=== PATIENT | female | born 1945 | race Caucasian/White ===

== ENCOUNTER 2022-03-12 05:11 | Observation (INO) ==
--- NOTE | 2022-02-04 11:10 | PAT Medication Instructions ---
Medication Instructions Date of Service February 04, 2022 Home Medications allopurinol 100 mg tablet 100 mg PO PM atorvastatin 40 mg tablet 40 mg PO HS biotin 1 mg tablet 1 mg PO QAM calcium carbonate 500 mg-vitamin D3 3.125 mcg (125 unit) tablet 1 tab PO BID duloxetine 60 mg capsule,delayed release sprinkle 60 mg PO HS fiber 3 cap PO QAM gabapentin 100 mg capsule 100 mg PO DIRECTED gabapentin 300 mg capsule 300 mg PO DIRECTED lisinopril 20 mg-hydrochlorothiazide 12.5 mg tablet 1 tab PO QAM meloxicam 15 mg tablet 15 mg PO DIRECTED metformin 500 mg tablet,extended release 24 hr 500 mg PO QDD multivitamin 1 tab PO QAM omega-3 fatty acids 2,500 mg PO QAM omeprazole 20 mg tablet,delayed release 20 mg PO QAM oxybutynin chloride 10 mg tablet,extended release 24 hr 20 mg PO QAM potassium gluconate 595 mg (99 mg) tablet 595 mg PO QAM ASK your surgeon for instructions meloxicam 15 mg tablet 15 mg PO DIRECTED STOP taking 2 weeks before surgery (or as soon as possible if surgery is within 2 weeks) omega-3 fatty acids 2,500 mg PO QAM DO NOT take the morning of surgery biotin 1 mg tablet 1 mg PO QAM calcium carbonate 500 mg-vitamin D3 3.125 mcg (125 unit) tablet 1 tab PO BID fiber 3 cap PO QAM lisinopril 20 mg-hydrochlorothiazide 12.5 mg tablet 1 tab PO QAM multivitamin 1 tab PO QAM oxybutynin chloride 10 mg tablet,extended release 24 hr 20 mg PO QAM potassium gluconate 595 mg (99 mg) tablet 595 mg PO QAM Take morning of surgery With a small sip of water, OTHERWISE NOTHING TO EAT OR DRINK AFTER MIDNIGHT: gabapentin omeprazole 20 mg tablet,delayed release 20 mg PO QAM Take evening before surgery allopurinol 100 mg tablet 100 mg PO PM atorvastatin 40 mg tablet 40 mg PO HS calcium carbonate 500 mg-vitamin D3 3.125 mcg (125 unit) tablet 1 tab PO BID duloxetine 60 mg capsule,delayed release sprinkle 60 mg PO HS metformin 500 mg tablet,extended release 24 hr 500 mg PO QDD Other Notes If you have any questions please call us at [phone] or [phone] or [phone] or [phone]
--- NOTE | 2022-02-06 09:38 | Anesthesiology Consultation ---
Date of Service February 06, 2022 Assessment & Plan (1) Encounter for pre-operative examination: - COVID screening: Per assessment on 02/06: No known COVID-19 positive contacts or current COVID-19 related symptoms. Travel screen negative. Surgeon arranging preop COVID testing. Awaiting results. - Check BSG AM DOS Chart Review Chart Review: Acceptable Risk for Surgery and Patient seen in Pre Admission Testing Teaching & Discussion Pre-Anesthesia Teaching/Discussion Notes: Instructed NPO after midnight before surgery,except medications with 15 cc of water. Medication instructions provided according to the PAT guidelines. History Surgery Operation Date: 03/12/22 10:00 Proposed Procedures p Left Total Knee Arthroplasty - Travis Mayorga MD Height/Weight Height: 5 ft 5 in Weight: 85.5 kg Allergies Allergy/AdvReac Type Severity Reaction Status Date / Time No Known Allergies Allergy Verified 02/03/22 15:30 Medications Home Medications Medication Instructions Recorded Confirmed Last Taken allopurinol 100 mg tablet 100 mg PO PM 02/03/22 02/03/22 Unknown atorvastatin 40 mg tablet 40 mg PO HS 02/03/22 02/03/22 Unknown biotin 1 mg tablet 1 mg PO QAM 02/03/22 02/03/22 Unknown calcium carbonate 500 mg-vitamin 1 tab PO BID 02/03/22 02/03/22 Unknown D3 3.125 mcg (125 unit) tablet duloxetine 60 mg capsule,delayed 60 mg PO HS 02/03/22 02/03/22 Unknown release sprinkle fiber 3 cap PO QAM 02/03/22 02/03/22 Unknown gabapentin 100 mg capsule 100 mg PO DIRECTED 02/03/22 02/03/22 Unknown gabapentin 300 mg capsule 300 mg PO DIRECTED 02/03/22 02/03/22 Unknown lisinopril 20 1 tab PO QAM 02/03/22 02/03/22 Unknown mg-hydrochlorothiazide 12.5 mg tablet meloxicam 15 mg tablet 15 mg PO DIRECTED 02/03/22 02/03/22 Unknown metformin 500 mg tablet,extended 500 mg PO QDD 02/03/22 02/03/22 Unknown release 24 hr multivitamin 1 tab PO QAM 02/03/22 02/03/22 Unknown omega-3 fatty acids 2,500 mg PO QAM 02/03/22 02/03/22 Unknown omeprazole 20 mg tablet,delayed 20 mg PO QAM 02/03/22 02/03/22 Unknown release oxybutynin chloride 10 mg 20 mg PO QAM 02/03/22 02/03/22 Unknown tablet,extended release 24 hr potassium gluconate 595 mg (99 mg) 595 mg PO QAM 02/03/22 02/03/22 Unknown tablet Past Medical History Medical History Diabetic polyneuropathy Dyslipidemia Fatty liver disease, nonalcoholic GERD (gastroesophageal reflux disease) History of COVID-2020 Hypertension Neuropathy Feet Osteoarthritis Sleep apnea CPAP (compliant) Spinal stenosis Type 2 diabetes mellitus NIDDM Urge incontinence Exercise / Class Metabolic Activity II 4-5 Yardwork/Stairs/Walk up hill (one FS (no CP, no SOB)) Past Family History Family History Mother Diabetes Father Diabetes Past Surgical History Surgical History History of breast biopsy BENIGN History of cataract surgery R/L History of colonoscopy History of repair of rotator cuff RIGHT History of tooth extraction Social History Smoking Status: Never smoker Do You Dip or Chew Tobacco: No Hx Alcohol Use: Yes Alcohol type: wine alcohol intake frequency: a few times a week Hx Substance Use: No substance use type: does not use Review of Systems Previous URI symptoms- Patient was seen by PCP 01/29/22 with complaints of productive cough, rhinorrhea, sore throat x 9 days- rx'd Augmentin- negative Covid testing. Symptoms now resolved since 01/31 and patient feeling well. Patient denies chest pain, shortness of breath, dyspnea on exertion, fever, chills, wheezing, palpitations. Physical Exam Vital Signs VITALS BP 138/83 P 83 TEMP 98.5 SP02 94%RA RESP 18 PHYSICAL Mildly decreased cervical extension range of motion. Full TMJ range of motion. TMD 3 finger breaths Mallampati Score 3 Dentition: missing molars, Lungs: clear throughout to auscultation Cardiac: regular rate and rhythm, no murmurs noted Spine: normal Carotid arteries: negative bruit Extremities: no edema Lab Results Anesthesia Preop Results Results Anesthesia Widget: WBC 7.28 K/uL (4.8-10.8) 02/06/22 Hgb 13.4 g/dL (12.0-16.0) 02/06/22 Hct 40.3 % (37-47) 02/06/22 Plt 296 K/uL (130-400) 02/06/22 Na 136 mmol/L (136-145) 02/06/22 K 4.3 mmol/L (3.5-5.1) 02/06/22 Cl 99 mmol/L (98-107) 02/06/22 CO2 29 mmol/L (21-32) 02/06/22 BUN 16 mg/dl (6-23) 02/06/22 Creat 0.69 mg/dl (0.6-1.2) 02/06/22 Glucose Level 168 mg/dl (70-99(Fasting)) H 02/06/22 PT 10.7 Seconds (9.0-12.0) 02/06/22 PTT 28.3 Seconds (21.0-31.0) 02/06/22 INR 1.0 (0.9-1.1) 02/06/22 HA1c 7.5 % (4.5-5.6) H 02/06/22 Urine Color Dark Yellow 02/06/22 Urine Appearance Clear (Clear) 02/06/22 Urine pH 7.0 (4.5-7.5) 02/06/22 Urine Specific Chromo 1.018 (1.000-1.030) 02/06/22 Urine Protein Negative (Negative) 02/06/22 Urine Glucose (UA) Trace (Negative) H 02/06/22 Urine Ketones Trace (Negative) H 02/06/22 Urine Blood Negative (Negative) 02/06/22 Urine Nitrite Negative (Negative) 02/06/22 Urine Bilirubin Negative (Negative) 02/06/22 Urine Urobilinogen Negative (Negative) 02/06/22 Urine Leukocyte Esterase Negative (Negative) 02/06/22 Blood Type O Positive 02/06/22 Antibody Screen NEGATIVE 02/06/22 Testing Laboratory Results [place] at surgeon's office made aware of elevated hgba1c* Electrocardiogram Date: 02/06/22 NSR at 79bpm. LAD. Inferior infarct, age undetermined. Inferior infarct noted on 06/20/13 ECG (scanned into [employer])- Echo as done 07/11/13 for further evaluation and unremarkable. Chest X-Ray Date: 02/06/22 FINDINGS: Frontal and lateral radiographs of the chest demonstrate the cardiomediastinal silhouette to be within normal limits. The lungs are clear of alveolar opacities. There is no evidence for effusion bilaterally. There is no evidence for vascular congestion. There is no acute osseous pathology. IMPRESSION: No acute cardiopulmonary disease. Echocardiogram Date: 07/11/13 LVEF 65%. No regional motion abnormality. Trace MR. Mild AV sclerosis. Grade 1 diastolic dysfunction.
--- NOTE | 2022-03-11 07:23 | History & Physical Report ---
Date of Service March 11, 2022 Assessment & Plan (1) Primary osteoarthritis of left knee: Plan: Treatment options discussed with the patient. She has failed conservative measures and would like to proceed with surgical invention. Risks, benefits and alternatives to surgery including but not limited to infection, DVT, pain, stiffness, need for revision surgery, damage to blood vessels, damage to nerves, PE, , were discussed with the patient and they wish to proceed. Plan on left total knee arthroplasty scheduled for March 12 at [facility] with Dr. Mayorga. Plan on aspirin twice daily for 1 month postop for DVT prophylaxis. We will plan on outpatient PT. All questions answered. Patient will follow-up postop. History of Present Illness Chief Complaint: Left knee pain Primary Care Provider: Kari Church MD 76-year-old female past medical history significant for diabetes, hypertension, ROXANE, high cholesterol who presents with ongoing left knee pain. Pain is interfering with her daily activities. She has failed conservative measures and would like to proceed with surgical invention. Patient denies headaches, sweats, fevers, chills, double vision, blurred vision, cough, sore throat, dysphagia, chest pain, sob, wheezing, n/v/d/c, numbness, tingling, fatigue, urinary symptoms, mood disorders. ROS positive for left knee pain and stiffness. Allergies Allergy/AdvReac Type Severity Reaction Status Date / Time No Known Allergies Allergy Verified 02/03/22 15:30 Home Medications Medication Instructions Recorded Confirmed Type allopurinol 100 mg tablet 100 mg PO PM 02/03/22 02/03/22 History atorvastatin 40 mg tablet 40 mg PO HS 02/03/22 02/03/22 History biotin 1 mg tablet 1 mg PO QAM 02/03/22 02/03/22 History calcium carbonate 500 mg-vitamin 1 tab PO BID 02/03/22 02/03/22 History D3 3.125 mcg (125 unit) tablet duloxetine 60 mg capsule,delayed 60 mg PO HS 02/03/22 02/03/22 History release sprinkle fiber 3 cap PO QAM 02/03/22 02/03/22 History gabapentin 100 mg capsule 100 mg PO DIRECTED 02/03/22 02/03/22 History gabapentin 300 mg capsule 300 mg PO DIRECTED 02/03/22 02/03/22 History lisinopril 20 1 tab PO QAM 02/03/22 02/03/22 History mg-hydrochlorothiazide 12.5 mg tablet meloxicam 15 mg tablet 15 mg PO DIRECTED 02/03/22 02/03/22 History metformin 500 mg tablet,extended 500 mg PO QDD 02/03/22 02/03/22 History release 24 hr multivitamin 1 tab PO QAM 02/03/22 02/03/22 History omega-3 fatty acids 2,500 mg PO QAM 02/03/22 02/03/22 History omeprazole 20 mg tablet,delayed 20 mg PO QAM 02/03/22 02/03/22 History release oxybutynin chloride 10 mg 20 mg PO QAM 02/03/22 02/03/22 History tablet,extended release 24 hr potassium gluconate 595 mg (99 mg) 595 mg PO QAM 02/03/22 02/03/22 History tablet Past Med/Surg History Medical History Diabetic polyneuropathy Dyslipidemia Fatty liver disease, nonalcoholic GERD (gastroesophageal reflux disease) History of COVID-2020 Hypertension Neuropathy Feet Osteoarthritis Sleep apnea CPAP (compliant) Spinal stenosis Type 2 diabetes mellitus NIDDM Urge incontinence Surgical History History of breast biopsy BENIGN History of cataract surgery R/L History of colonoscopy History of repair of rotator cuff RIGHT History of tooth extraction Family History Mother Diabetes Father Diabetes Social History Smoking Status: Never smoker Second Hand Exposure: No; Hx Alcohol Use: Yes Alcohol type: wine Hx Substance Use: No Preferred Language: Nepalese Communication Ability: Effective 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 Beliefs That Will Affect Care: None Current Living Situation: Alone Feels Safe at Home: Yes Assistive Devices: CPAP and Glasses Review of Systems All systems reviewed & are unremarkable except as noted in HPI & below Physical Exam Constitutional: well developed and well nourished; no acute distress Eyes: PERRL, conjunctivae normal, anicteric sclerae ENMT: external ear and nose normal, oropharynx normal Neck: trachea midline, no thyromegaly Respiratory: normal respiratory effort, lungs clear to auscultation Cardiovascular: RRR, no murmur, no edema Musculoskeletal: Left knee: Varus alignment, tenderness medial joint line. Stress test. Range of motion 0 to 130 degrees. Skin: no rashes, warm and dry Neurologic: patellar DTR's 2+ bilat, sensation intact Psychiatric: A+Ox3, euthymic affect Results & Data ([facility]) Diagnostic Findings Left knee: End-stage osteoarthritis left knee with [id number] medial compartment. Significant degenerative changes patellofemoral compartment. She has some bone loss medially. There is subluxation noted.
[2022-03-12] MEDS ORDERED: CeleBREX 200 MG CAP PO SCH (06:00)
[2022-03-12] MEDS ORDERED: TRANEXAMIC ACID 1,000 MG **IV Intra-op IV SCH (06:00)
[2022-03-12] MEDS ORDERED: ROPIVACAINE 0.5% HCL/PF 150 MG, BUPIVACAINE 0.75% MPF 20 ML, EPINEPHrine 30MG/30ML (OR ... INFIL SCH (06:00)
[2022-03-12] MEDS ORDERED: GABAPENTIN 300 MG CAP PO SCH ×2 (06:00→12:00)
[2022-03-12] MEDS ORDERED: TRANEXAMIC ACID 1,000 MG **IV Pre-op IV SCH (06:00)
[2022-03-12] MEDS ORDERED: ceFAZolin 2000MG 2,000 MG/15 ML SYR IV SCH (06:00)
[2022-03-12] MEDS ORDERED: ACETAMINOPHEN 500 MG TAB PO SCH (06:00)
[2022-03-12] MEDS ORDERED: LR 500ML BOLUS, THEN 15ML/HR IV SCH (06:00)
[2022-03-12] MEDS ORDERED: METOCLOPRAMIDE HCL 10 MG TABLET PO SCH (06:00)
[2022-03-12] MEDS ORDERED: FAMOTIDINE 20 MG TAB PO SCH (06:00)
[2022-03-12] MEDS ORDERED: ROPIVACAINE 0.5% 5 MG/ML 30 ML VIAL ONE (06:20)
[2022-03-12] MEDS ORDERED: BUPIVACAINE 0.5 % 5 MG/1 ML PF 10ML VIAL ONE (06:20)
[2022-03-12] MEDS ORDERED: LIDOCAINE 2% 2 ML VIAL/AMP(20MG/ML) INFIL ONE (06:25)
[2022-03-12] MEDS ORDERED: PROPOFOL IV EMULSION 10 MG/ML 20 ML VIAL IV ONE (06:25)
[2022-03-12] MEDS ORDERED: MIDAZOLAM HCL 1 MG/ML 2ML VIAL ONE (06:26)
[2022-03-12] MEDS ORDERED: fentaNYL citrate 100 MCG/2 ML VIAL ONE (06:26)
[2022-03-12] MEDS ORDERED: HYDROmorphone INJ 1 MG/ML SYRINGE IV PRN (06:50)
[2022-03-12] MEDS ORDERED: KETOROLAC 30 MG/ML VIAL IV PRN (06:50)
[2022-03-12] MEDS ORDERED: ONDANSETRON INJ 2 MG/ML 2 ML VIAL IV PRN ×2 (06:50→10:51)
[2022-03-12] MEDS ORDERED: ePHEDrine sulfate 50 MG/ML AMP IV PRN (06:50)
[2022-03-12] MEDS ORDERED: ATROPINE SULFATE 0.1 MG/ML 10ML SYR IV PRN (06:50)
[2022-03-12] MEDS ORDERED: ORTHO JOINT ANESTHETIC ONE (07:01)
--- NOTE | 2022-03-12 07:14 | History & Physical Bridge Note ---
Date of Service March 12, 2022 History & Physical Bridge Note I have examined the patient, reviewed the History & Physical and in the interval since the performance of the History & Physical I have noted the following changes of clinical significance: no changes noted
--- NOTE | 2022-03-12 09:19 | Operative Report ---
Post Operative Report Pre & Post Diagnosis Operation Date: 03/12/22 07:00 Pre-Op Diagnosis: Left Knee Osteoarthritis Post-Op Diagnosis: Left Knee Osteoarthritis I identified the patient and participated in the time-out.: Yes Procedure Operation Date: 03/12/22 07:00 Actual Procedures p Left Total Knee Arthroplasty(Left), lateral release, application superficial wound VAC Travis Mayorga MD Surgeon Travis Mayorga MD Bat Boy/Girl Adriel BAI Estimated Blood Loss 5 Findings Consistent with Post-Op Diagnosis Specimens Bone cuts Drains 2 Hemovac Anesthesia Type MAC Spinal Regional Complications none Disposition Disposition: Recovery Room Indications 76-year female with chronic progressive osteoarthritis in her left knee. Radiographs demonstrate a varus knee [id number] medial compartment and moderate patellofemoral osteoarthritis Description of Procedure Patient was taken to the operating room placed supine on the operating table and anesthetized under spinal MAC regional block anesthesia. Exam under anesthesia demonstrated moderate effusion good range of motion varus knee no instability. A pneumatic tourniquet was placed about the mildly obese thigh of the left lower extremity. The left lower extremity was prepped and draped in usual sterile fashion. The leg was elevated exsanguinated with an Esmarch bandage and the pneumatic tourniquet was raised to 325 mm mercury. An anterior incision was made across the left knee. The skin was incised longitudinally subcutaneous flaps were elevated and an incision was made through the medial retinaculum extending up into the mid third of the quadriceps tendon and extended down to the medial tibial tubercle. Intra-articular findings demonstrated medial comp artment osteoarthritis [id number] with eburnated bone and some moderate patellofemoral OA . The knee was exposed by excising the infrapatellar fat pad, excising the meniscal remnants and anterior cruciate ligament. Any inflamed synovial tissue was resected. The fat pad over the anterior femur was resected for placement of the component in that area. The lateral synovial bands were release. The femur was exposed. The custom femoral cutting block was pinned in position. The distal femoral cutting block was applied. The distal femoral cut was made with the oscillating saw. The size 8, 4-in-1 cutting block was placed. The anterior and posterior chamfer cuts were made. The knee was extended and a subperiosteal peel lateral release was performed around the patella. The patella width was measured and width was reproduced using freehand cut technique. The 32 x 8.5 millimeter symmetrical patella was used. 3 drill holes are made for the pegs. The tibia was exposed. A custom tibial cutting block was positioned and drill holes were made for the cutting guide. Cutting guide was placed and the proximal cut was made with the oscillating saw. All osteophytes were resected. The lamina house registry rn was used to assess ligamentous balance and the ligaments were balanced in extension and flexion. This required minor medial posterior medial release. The tibia was reexposed and measured for a size D tibial component. This was externally rotated in line with the tibial tubercle and the fixation pins were drilled. The proximal tibia was fashioned with the drill and punch. The size 8 femoral trial was inserted. The trial MC inserts were used. The 12 mm insert gave balanced ligaments through full range of motion. The patella tracked with some lateral tilt so I did a lateral release leaving the synovium intact and patella tracks centrally. The trials were removed. The orthomix anesthetic cocktail was injected per protocol. The knee was then copiously irrigated with pulsatile lavage saline solution. The final components were cemented with Refobacin bone cement. The final components were Jovanna persona size 8 left narrow CR femoral component, size D left tibial component with a 12 mm MC polyethylene and a 32 x 8.5 symmetrical patella. After the cement cured with the knee in full extension the Betadine soak was used per protocol. The knee joint was copiously irrigated with pulsatile lavage saline solution . 2 drains were brought out laterally and connected to a Hemovac. The quadriceps tendon and medial retinaculum were closed with interrupted [id number] #1 Vicryl sutures. The knee was taken through a full range of motion and repair was secure. Range of motion was 0 through 130 degrees. The subcutaneous tissues were closed with 2-0 Vicryl sutures and skin was closed with hector. A gisel and Acticoat superficial wound VAC was applied and the patient tolerated the procedure well. Adriel BAI my physician graduate research assistant, participated as waiter/waitress first class and was integral part in all aspects of the procedure including he assisted in soft tissue retraction, instrument management ,leg positioning, the closure, application of the superficial wound VAC and will participate in the postoperative care of the patient. I attest to the content of the Intraoperative Record and any orders documented therein. Any exceptions are noted below.
--- NOTE | 2022-03-12 10:41 | XRay Report ---
XR knee LT 1 or 2V routine HISTORY: 76 years-old Female Surgical Post Op left knee total joint arthroplasty COMPARISON: None TECHNIQUE: 2 views of the left knee FINDINGS: Total joint arthroplasty with patellar resurfacing. Anterior midline skin hector are noted along wit h expected postoperative soft tissue swelling and deep tissue air. Anterior midline skin hector with surgical drainage catheter. No acute fracture or unexpected opaque foreign body. IMPRESSION: Total joint arthroplasty with expected postoperative changes. ACT 112: Negative or not required by law. The above report was generated using voice recognition software. It may contain grammatical, syntax o r spelling errors. Electronically signed by: Mumtaz Jett M.D. 03/12/2022 10:39 AM
[2022-03-12] MEDS ORDERED: bisacodyL 10 MG SUPP PR PRN (10:51)
[2022-03-12] MEDS ORDERED: PHARMACY GLYCEMIC MGMT CONSULT PRN (10:51)
[2022-03-12] MEDS ORDERED: HYDROmorphone INJ 0.5 MG/0.5 ML SYR IV PRN (10:51)
[2022-03-12] MEDS ORDERED: NALOXONE HCL 0.4 MG/1 ML VIAL/CARP IV PRN (10:51)
[2022-03-12] MEDS ORDERED: MAGNESIUM HYDROXIDE SUSP 30 ML UDC PO PRN (10:51)
[2022-03-12] MEDS ORDERED: METOCLOPRAMIDE HCL INJ 5 MG/ML 2 ML VIAL IV PRN (10:51)
--- NOTE | 2022-03-12 11:09 | Pharmacy Report ---
Pharmacy Glycemic Short Note 2 - Date of Service March 12, 2022 - Glycemic Short BSG Results (Last 24 hours): 03/12/22 03/12/22 05:32 10:14 POC Glucose 186 H 123 H OUTPATIENT ANTIDIABETIC REGIMEN: * Metformin 500 mg PO daily HbA1c 7.5% (02/06/22) ASSESSMENT: * CF is a 76 year old female POD #0 s/p left total knee arthroplasty * No perioperative steroids administered * Preop BSG of 186 mg/dl and postop BSG of 123 mg/L * Given elevated fasting BSG and slightly elevated HbA1c - will give standard initial Lantus dosing of 10 units (~0.1 unit/kg) with weight-based stress of 2 Novolog PLAN FOR INPATIENT GLYCEMIC CONTROL: * Hold outpatient oral diabetes medications * consider restarting tomorrow * Basal insulin * Lantus 10 units SQ daily * Bolus insulin * NovoLog per scale ACHS or Q6hrs while NPO * Goal Range: Low 110 mg/dL - High 140 mg/dL * Correction Factor: 25 mg/dL/unit * Nutritional / Prandial insulin per carb ratio of 1 unit per 9 grams CHO consumed
[2022-03-12] MEDS ORDERED: GLUCOSE 10 TABS/TUBE PO PRN (11:15)
[2022-03-12] MEDS ORDERED: GLUCOSE 40% GEL 15 GM TUBE PO PRN (11:15)
[2022-03-12] MEDS ORDERED: CARBOHYDRATES FOR HYPOGLYCEMIA PO PRN (11:15)
[2022-03-12] MEDS ORDERED: DEXTROSE 50% 50 ML SYRINGE IV PRN (11:15)
[2022-03-12] MEDS ORDERED: GLUCAGON FOR INJ 1 MG VIAL IM PRN (11:15)
[2022-03-12] MEDS ORDERED: LANTUS PER UNIT CHARGE SQ ONE (11:30)
--- NOTE | 2022-03-12 11:38 | Anesthesiology Progress Note ---
Date of Service March 12, 2022 Anesthesia Post Procedure Vital Signs Vital Signs: Temp Pulse Pulse Resp BP BP Pulse Ox 03/12/22 11:11 36.1 C L 67 16 129/78 92 03/12/22 10:44 36.8 C 70 16 127/75 95 03/12/22 10:30 36.5 C 71 17 133/71 97 03/12/22 10:20 74 16 133/70 97 03/12/22 10:10 72 17 132/77 100 03/12/22 10:00 72 18 115/62 100 03/12/22 09:51 36.9 C 77 16 116/60 98 03/12/22 05:34 36.9 C 85 20 166/84 H 95 Transfer of Care Handoff Completed per policy Notes Mental Status: alert / awake / arousable Patient Amnestic to Procedure: Yes Nausea / Vomiting: adequately controlled Pain: adequately controlled Airway Patency, RR, SpO2: stable & adequate BP & HR: stable & adequate Hydration State: stable & adequate Neuraxial Anesthesia: was administered and sensory block is resolving Anesthetic Complications: no major complications apparent
--- NOTE | 2022-03-12 11:46 | Hospitalist Consultation ---
Date of Consultation March 12, 2022 Assessment & Plan (1) Status post total knee replacement, left: This is a 76yo F with a PMH of DM II, HTN, HLD, ROXANE on CPAP, peripheral neuropathy who is POD#0 s/p p Left Total Knee Arthroplasty by Dr. Mayorga. POD#0 s/p p Left Total Knee Arthroplasty by Dr. Mayorga Per ortho for pain control, wound care, anticoagulation and activities Monitor H&H (pre-op hgb 13.6), PT/OT when appropriate (2) Peripheral neuropathy: Continue gabapentin, duloxetine (3) Hypertension: Resume lisinopril-hctz tomorrow AM (4) Type 2 diabetes mellitus: A1c 7.5 in January 2022 Hold home agents SSI while in-patient BSG AC HS Requesting script for glucometer at time of discharge (5) Urge incontinence: Continue oxybutynin (6) Dyslipidemia: Continue statin (7) Sleep apnea: CPAP HS PCP: Wayne Dispo: Per primary service Patient seen in collaboration with Dr. Case. Please see addendum. Supervising Physician Co-Signing Physician Notes History and physical exam performed by de 76year old woman with DM2, peripheral neuropathy, ROXANE on CPAP, HTN who had elective Left TKA today. Currently only reports left LE numbness On exam, General: Well nourished, well hydrated, no acute distress Eyes: PERRL, conjunctivae normal, not pale, anicteric sclerae, EOM intact bilaterally ENMT: External ear and nose normal, oropharynx normal Respiratory: Normal respiratory effort, no respiratory distress, lungs clear to auscultation, no crackles and no wheezes Cardiovascular: RRR S1 S2 Gastrointestinal (Abdomen): Abdomen is not distended, soft, non-tender to palpation, no guarding, no palpable hepatosplenomegaly, normal bowel sounds Musculoskeletal: Left knee and leg bandaged with drain in situ Neurologic: Alert and oriented x 3, No focal weakness, sensation grossly intact Psychiatric: Alert and oriented x 3, euthymic affect, no depressed affect Left Knee Osteoarthritis S/p Left Total Knee Arthroplasty Pain control, activity and DVT ppx per primary surgical team Hold metformin for now. Monitor blood glucose and use insulin sliding scale. Can resume metformin on dc Get CBC and BMP tomorrow Continue other home meds Agree with other plans as detailed by Swati Lockwood PA-C History of Present Illness Reason for Consultation: post op med mgmt Attending Physician: Travis Mayorga MD History of Present Illness This is a 76yo F with a PMH of DM II, HTN, HLD, ROXANE on CPAP, peripheral neuropathy who is POD#0 s/p p Left Total Knee Arthroplasty by Dr. Mayorga. Patient follows with tresa in [place] for primary care. Feeling well post- operatively. Anesthetic still in effect so denies knee pain. Eating lunch without an issue. No fever, chills, headache, CP, SOB, nausea, vomiting, abdominal pain, dysuria, diarrhea or constipation. Allergies Allergy/AdvReac Type Severity Reaction Status Date / Time No Known Allergies Allergy Verified 03/12/22 05:36 Home Medications Medication Instructions Recorded Confirmed Type allopurinol 100 mg tablet 100 mg PO PM 02/03/22 03/12/22 History atorvastatin 40 mg tablet 40 mg PO HS 02/03/22 03/12/22 History biotin 1 mg tablet 1 mg PO QAM 02/03/22 03/12/22 History calcium carbonate 500 mg-vitamin 1 tab PO BID 02/03/22 03/12/22 History D3 3.125 mcg (125 unit) tablet duloxetine 60 mg capsule,delayed 60 mg PO HS 02/03/22 03/12/22 History release sprinkle fiber 3 cap PO QAM 02/03/22 03/12/22 History gabapentin 100 mg capsule 100 mg PO DIRECTED 02/03/22 03/12/22 History gabapentin 300 mg capsule 300 mg PO DIRECTED 02/03/22 03/12/22 History lisinopril 20 1 tab PO QAM 02/03/22 03/12/22 History mg-hydrochlorothiazide 12.5 mg tablet meloxicam 15 mg tablet 15 mg PO DIRECTED 02/03/22 03/12/22 History metformin 500 mg tablet,extended 500 mg PO QDD 02/03/22 03/12/22 History release 24 hr multivitamin 1 tab PO QAM 02/03/22 03/12/22 History omega-3 fatty acids 2,500 mg PO QAM 02/03/22 03/12/22 History omeprazole 20 mg tablet,delayed 20 mg PO QAM 02/03/22 03/12/22 History release oxybutynin chloride 10 mg 20 mg PO QAM 02/03/22 03/12/22 History tablet,extended release 24 hr potassium gluconate 595 mg (99 mg) 595 mg PO QAM 02/03/22 03/12/22 History tablet Patient History Medical History (Updated 03/12/22 @ 11:45 by Swati Lockwood PA-C) Diabetic polyneuropathy Dyslipidemia Fatty liver disease, nonalcoholic GERD (gastroesophageal reflux disease) History of COVID-19 2020 Hypertension Osteoarthritis Peripheral neuropathy Sleep apnea CPAP (compliant) Spinal stenosis Type 2 diabetes mellitus NIDDM Urge incontinence Surgical History (Updated 03/12/22 @ 11:45 by Swati Lockwood PA-C) History of breast biopsy BENIGN History of cataract surgery R/L History of colonoscopy History of repair of rotator cuff RIGHT History of tooth extraction Family History Mother Diabetes Father Diabetes Social History Smoking Status: Never smoker Second Hand Exposure: No; Do You Dip or Chew Tobacco: No; Tobacco Cessation Education Requested by Patient: No Hx Alcohol Use: Yes Alcohol type: wine Hx Substance Use: No Preferred Language: Maldivian Communication Ability: Effective Ultrasound Spec Required: No Beliefs That Will Affect Care: None Current Living Situation: Alone Other Information That Helps Us Care for You: No Feels Safe at Home: Yes Safety Concerns: Feels Safe At This Time Assistive Devices: CPAP and Glasses Review of Systems Review of Systems: At least ten systems reviewed and negative except as noted in the HPI. Physical Exam Physical Exam: Please see Dr. Csae's addendum for physical exam. Results & Data Results [facility] Vital Signs (Past 12 Hours) Vital Signs Temp Pulse Pulse Resp BP BP Pulse Ox 03/12/22 11:11 36.1 C L 67 16 129/78 92 03/12/22 10:44 36.8 C 70 16 127/75 95 03/12/22 10:30 36.5 C 71 17 133/71 97 03/12/22 10:20 74 16 133/70 97 03/12/22 10:10 72 17 132/77 100 03/12/22 10:00 72 18 115/62 100 03/12/22 09:51 36.9 C 77 16 116/60 98 03/12/22 05:34 36.9 C 85 20 166/84 H 95
[2022-03-12] MEDS ORDERED: GABAPENTIN 100 MG CAP PO SCH ×2 (12:00→16:30)
[2022-03-12] MEDS: INSULIN ASPART PER UNIT SC SCH ×3 (12:27→21:50)
[2022-03-12] MEDS: SODIUM CHLORIDE 0.9% 1000ML 1,000 ML IV SCH (13:06)
[2022-03-12] MEDS: ACETAMINOPHEN 500 MG TAB PO SCH ×2 (14:01→21:41)
[2022-03-12] MEDS: ceFAZolin 2000MG 2,000 MG/15 ML SYR IV SCH ×2 (16:44→23:47)
[2022-03-12] MEDS: CeleBREX 200 MG CAP PO SCH (21:41)
[2022-03-12] MEDS: ASPIRIN 81 MG ECTAB PO SCH (21:41)
[2022-03-12] MEDS: SENNA 8.6 MG TAB PO SCH (21:41)
[2022-03-12] MEDS: DOCUSATE SODIUM 100 MG CAP PO SCH (21:41)
[2022-03-12] MEDS: ATORVASTATIN 40 MG TAB PO SCH (21:42)
[2022-03-12] MEDS: DULoxetine HCL 60 MG CAP PO SCH (21:42)
[2022-03-12] MEDS: CALCIUM CARBONATE 1250MG TAB PO SCH (21:42)
[2022-03-13] MEDS: SODIUM CHLORIDE 0.9% 1000ML 1,000 ML IV SCH (01:01)
[2022-03-13] MEDS: ACETAMINOPHEN 500 MG TAB PO SCH ×3 (06:19→21:13)
--- NOTE | 2022-03-13 07:38 | Orthopedic Progress Note ---
Date of Service March 13, 2022 Assessment & Plan (1) Status post total knee replacement, left: Plan: Postop day 1 left total knee -PT/OT -Pain management as written, consider dose of Toradol pending labs this morning -DVT prophylaxis: SCDs, teds, aspirin 81 mg twice daily -A.m. labs are pending -Discharge planning: Plan on discharging home with outpatient PT. Likely discharge tomorrow. Admission and Anticipated Discharge Date Admission Date: March 12, 2022 Subjective Patient is postop day #1 left total knee. She is having a lot of pain this morning as well as some nausea. No other complaints. Denies chest pain, shortness of breath, vomiting/diarrhea, dizziness or lightheadedness. Review of Systems Review of Systems: All systems reviewed & are unremarkable except as noted in Subjective Physical Exam Physical Exam: Left knee: Dressing is clean, dry, intact. Toes are mobile with good dorsiflexion. No calf tenderness. Able to do a straight leg raise. Hemovac and gisel in place and on suction. Distally neurovascular status and sensation intact. Constitutional: WD/WN, vitals as above Results & Data ([facility]) Vital Signs (Past 12 Hours) Vital Signs Temp Pulse Resp BP Pulse Ox 03/13/22 07:23 36.7 C 82 14 159/84 H 92 03/13/22 03:42 36.8 C 82 18 161/85 H 93 03/12/22 23:13 36.3 C L 84 16 158/83 H 98
[2022-03-13] MEDS ORDERED: LANTUS PER UNIT CHARGE SQ ONE ×2 (08:00→21:00)
[2022-03-13 08:29] LABS: Hematocrit (blood only) 35.4 % (37-47); Hemoglobin 11.7 g/dL (12.0-16.0); Mean Corpuscular Hemoglobin 32.2 pg (25-34); Mean Corpuscular Hgb Conc 33.1 g/dL (32-36); Mean Corpuscular Volume 97.5 fL (80-100); Mean Platelet Volume 9.5 fL (7.4-10.4); Platelet Count 264 K/uL (130-400); RDW Coefficient of Variation 13.8 % (11.5-14.5); RDW Standard Deviation 49.1 fL (36.4-46.3); Red Blood Count 3.63 M/uL (4.2-5.4); White Blood Count 7.26 K/uL (4.8-10.8)
[2022-03-13 08:30] LABS: BUN Creatinine Ratio 24.2 (10-20); Calcium 8.9 mg/dl (8.5-10.1); Est GFR (African American) 100.2 ml/min; Est GFR (Non-African American) 86.4 ml/min; Potassium 4.1 mmol/L (3.5-5.1)
[2022-03-13] MEDS: MULTIVITAMIN TAB PO SCH (08:34)
[2022-03-13] MEDS: CALCIUM CARBONATE 1250MG TAB PO SCH ×2 (08:35→21:13)
[2022-03-13] MEDS: CeleBREX 200 MG CAP PO SCH ×2 (08:35→21:14)
[2022-03-13] MEDS: DOCUSATE SODIUM 100 MG CAP PO SCH ×2 (08:35→21:13)
[2022-03-13] MEDS: GABAPENTIN 100 MG CAP PO SCH (08:36)
[2022-03-13] MEDS: OXYBUTYNIN CHLORIDE XL 5 MG TABCR PO SCH (08:37)
[2022-03-13] MEDS: CHOLECALCIFEROL 1,000 UNITS 25 MCG TAB PO SCH (08:37)
[2022-03-13] MEDS: PANTOprazole 40 MG TAB PO SCH (08:37)
[2022-03-13] MEDS: ASPIRIN 81 MG ECTAB PO SCH ×2 (08:39→21:14)
[2022-03-13] MEDS: LISINOPRIL/HCTZ 20/12.5MG 1 TAB TAB PO SCH (08:39)
[2022-03-13] MEDS: INSULIN ASPART PER UNIT SC SCH ×4 (08:54→21:09)
[2022-03-13] MEDS ORDERED: KETOROLAC TROMETHAMINE 15 MG/ML VIAL IV ONE (08:56)
[2022-03-13] MEDS ORDERED: NON-FORMULARY MEDICATION (Potassium Gluconate 595 mg (99 mg) Tablet) PO SCH (09:00)
[2022-03-13] MEDS ORDERED: NON-FORMULARY MEDICATION (Multivitamin Tablet) PO SCH (09:00)
[2022-03-13] MEDS ORDERED: NON-FORMULARY MEDICATION (Biotin 1 mg Tablet) PO SCH (09:00)
--- NOTE | 2022-03-13 09:31 | Pharmacy Report ---
Pharmacy Glycemic Short Note 2 - Date of Service March 13, 2022 - Glycemic Short BSG Results (Last 24 hours): 03/12/22 03/12/22 03/12/22 10:14 11:25 17:05 Glucose POC Glucose 123 H 113 H 93 03/12/22 03/13/22 03/13/22 20:36 07:16 08:03 Glucose 154 H POC Glucose 125 H 151 H OUTPATIENT ANTIDIABETIC REGIMEN: * Metformin 500 mg PO daily@18 HbA1c 7.5% (02/06/22) ASSESSMENT: 03/13/22 * Stressors stable - POD 1 * AM fasting BSG above goal - will increase Lantus * Post-prandial BSG's yesterday well controlled - no change to Novolog for now. Will stop today after metformin restarted. * Resume evening metformin tonight Background * CF is a 76 year old female POD #0 s/p left total knee arthroplasty * No perioperative steroids administered * Preop BSG of 186 mg/dl and postop BSG of 123 mg/L * Elevated fasting BSG and slightly elevated HbA1c PLAN FOR INPATIENT GLYCEMIC CONTROL: * Resume metformin starting with dinner tonight * Basal insulin * Lantus 15 units SQ x1 * Bolus insulin * NovoLog per scale ACHS or Q6hrs while NPO - stop after bedtime today * Goal Range: Low 110 mg/dL - High 140 mg/dL * Correction Factor: 25 mg/dL/unit * Nutritional / Prandial insulin per carb ratio of 1 unit per 9 grams CHO consumed
[2022-03-13] MEDS ORDERED: GABAPENTIN 400 MG CAP PO SCH (12:00)
[2022-03-13] MEDS ORDERED: metFORMIN HCL 500 MG TAB PO SCH (16:30)
[2022-03-13] MEDS: GABAPENTIN 300 MG CAP PO SCH ×2 (17:10→21:13)
[2022-03-13] MEDS: oxyCODONE HCL IR 5 MG TAB (IMMEDIATE RELEASE) PO PRN (17:30)
--- NOTE | 2022-03-13 18:04 | Hospitalist Progress Note ---
Date of Service March 13, 2022 Assessment & Plan (1) Status post total knee replacement, left: Plan: This is a 76yo F with a PMH of DM II, HTN, HLD, ROXANE on CPAP, peripheral neuropathy who is POD#1 s/p p Left Total Knee Arthroplasty by Dr. Mayorga. POD#0 s/p p Left Total Knee Arthroplasty by Dr. Mayorga Per ortho for pain control, wound care, anticoagulation and activities Monitor H&H (pre-op hgb 13.6), PT/OT when appropriate (2) Peripheral neuropathy: Plan: Continue gabapentin, duloxetine (3) Hypertension: Plan: At goal continue lisinopril HCTZ per home regimen. (4) Type 2 diabetes mellitus: Plan: A1c 7.5 in January 2022 Hold home agents SSI while [id number] goal BSG AC HS Requesting script for glucometer at time of discharge (5) Urge incontinence: Plan: Chronic, controlled-continue oxybutynin (6) Sleep apnea: Plan: CPAP HS PCP: Wayne Dispo: Per primary service [facility] Admission and Anticipated Discharge Date Admission Date: March 12, 2022 Subjective 76-year-old female status post left total knee arthroscopy on 03/12 She is not complaining of any pain that is uncontrolled Denies any chest pain, shortness of breath, fevers, chills She is tolerating p.o. Review of Systems Review of Systems: All system reviewed negative except as indicated above. Physical Exam Physical Exam: CONSTITUTIONAL: WNWD, vitals as above, generally well- appearing, NAD EYES: normal conjunctivae, no scleral icterus, ENT: external ear and nose normal, NECK: trachea midline RESPIRATORY: clear to auscultation bilaterally, no crackles, rales or wheezes, normal respiratory effort CARDIOVASCULAR: regular rate and rhythm, S1 and 2 heard without murmurs, gallops or rubs, no JVD, no peripheral edema, bilateral dorsalis pedis pulses are palpable. CHEST: inspection of chest was normal GASTROINTESTINAL: soft, nontender, ND, no guarding MUSCULOSKELETAL: Moves arms without issue, left knee is in surgical dressing with ice over the top. Did not assess secondary to postoperative state. Head is normocephalic and atraumatic SKIN: warm and dry, NEUROLOGIC: CN 2-12 grossly intact, no sensory deficit, normal cognition, normal speech, no tremor PSYCHIATRIC: alert cooperative and oriented to person, place and time. Euthymic mood, makes good eye contact, language grossly intact, recent and remote memory grossly intact. LYMPHATIC: no LAD Results & Data Results & Data ([facility]) Vital Signs (Past 12 Hours) Vital Signs Temp Pulse Resp BP Pulse Ox 03/13/22 16:19 36.8 C 79 16 124/78 93 03/13/22 12:30 36.7 C 96 H 18 143/84 H 96 03/13/22 07:23 36.7 C 82 14 159/84 H 92 Laboratory Results Short CBC 03/13/22 Range/Units 07:16 WBC 7.26 (4.8-10.8) K/uL Hgb 11.7 L (12.0-16.0) g/dL Hct 35.4 L (37-47) % Plt Count 264 (130-400) K/uL BMP 03/13/22 07:16 Sodium 136 Potassium 4.1 Chloride 100 Carbon Dioxide 28 BUN 16 Creatinine 0.66 Glucose 154 H Calcium 8.9 Medications Administered Current Inpatient Medications Acetaminophen (Acetaminophen 500 Mg Tab) 1,000 mg PO Q8 ZUHAIR Stop: 04/11/22 13:59 Last Admin: 03/13/22 14:21 Dose: 1,000 mg Documented by: Allopurinol (Allopurinol 100 Mg Tab) 100 mg PO PM ZUHAIR Stop: 04/12/22 20:59 Aspirin (Aspirin 81 Mg Ectab) 81 mg PO BID ZUHAIR Stop: 04/11/22 20:59 Last Admin: 03/13/22 08:39 Dose: 81 mg Documented by: Atorvastatin Calcium (Atorvastatin 40 Mg Tab) 40 mg PO HS ZUHAIR Stop: 04/11/22 20:59 Last Admin: 03/12/22 21:42 Dose: 40 mg Documented by: Bisacodyl (Bisacodyl 10 Mg Supp) 10 mg MI DAILY PRN PRN Reason: Constipation Stop: 04/11/22 10:50 Calcium Carbonate (Calcium Carbonate 1250mg Tab) 1,250 mg PO BID ZUHAIR Stop: 04/11/22 20:59 Last Admin: 03/13/22 08:35 Dose: 1,250 mg Documented by: Celecoxib (Celebrex 200 Mg Cap) 200 mg PO BID ZUHAIR Stop: 04/11/22 20:59 Last Admin: 03/13/22 08:35 Dose: 200 mg Documented by: Dextrose (Dextrose 50% 50 Ml Syringe) 25 - 50 ml IV UD PRN; Protocol PRN Reason: Hypoglycemia Protocol Stop: 04/11/22 11:14 Docusate Sodium (Docusate Sodium 100 Mg Cap) 100 mg PO BID [facility] Stop: 04/11/22 20:59 Last Admin: 03/13/22 08:35 Dose: 100 mg Documented by: Duloxetine HCl (Duloxetine Hcl 60 Mg Cap) 60 mg PO HS [facility] Stop: 04/11/22 20:59 Last Admin: 03/12/22 21:42 Dose: 60 mg Documented by: Gabapentin (Gabapentin 300 Mg Cap) 600 mg PO BID@1630,2100 [facility] Stop: 04/12/22 16:29 Last Admin: 03/13/22 17:10 Dose: 600 mg Documented by: Gabapentin (Gabapentin 100 Mg Cap) 500 mg PO DAILY@0900 [facility] Stop: 04/12/22 08:59 Last Admin: 03/13/22 08:36 Dose: 500 mg Documented by: Gabapentin (Gabapentin 400 Mg Cap) 400 mg PO DAILY@1200 [facility] Stop: 04/12/22 11:59 Last Admin: 03/13/22 12:43 Dose: 400 mg Documented by: Glucagon (Glucagon For Inj 1 Mg Vial) 1 mg IM UD PRN; Protocol PRN Reason: Hypoglycemia Protocol Stop: 04/11/22 11:14 Glucose (Glucose 40% Gel 15 Gm Tube) 15 - 30 gm PO UD PRN; Protocol PRN Reason: Hypoglycemia Protocol Stop: 04/11/22 11:14 Glucose (Glucose 10 Tabs/Tube) 4 - 8 tabs PO UD PRN; Protocol PRN Reason: Hypoglycemia Protocol Stop: 04/11/22 11:14 Lisinopril/HCTZ (Lisinopril/Hctz 20/12.5mg 1 Tab Tab) 1 tab PO QAM [facility] Stop: 04/12/22 08:59 Last Admin: 03/13/22 08:39 Dose: 1 tab Documented by: Hydromorphone HCl (Hydromorphone Inj 0.5 Mg/0.5 Ml Syr) 0.5 mg IV Q4H PRN PRN Reason: Pain or Pre PT Stop: 03/26/22 10:50 Last Admin: 03/13/22 07:45 Dose: 0.5 mg Documented by: Insulin Aspart (Insulin Aspart Per Unit) 0 units SC [facility] Stop: 03/13/22 23:59 Last Admin: 03/13/22 17:30 Dose: 5 units Documented by: Insulin Aspart (Insulin Aspart Per Unit) 0 units SC [facility] Stop: 04/13/22 07:29 Insulin Glargine (Lantus Per Unit Charge) 0 units SQ DAILY [facility]; Protocol Stop: 04/13/22 08:59 Magnesium Hydroxide (Magnesium Hydroxide Susp 30 Ml Udc) 30 ml PO Q6H PRN PRN Reason: Constipation Stop: 04/11/22 10:50 Metformin HCl (Metformin Hcl 500 Mg Tab) 500 mg PO QDD [facility] Stop: 04/12/22 16:29 Last Admin: 03/13/22 17:09 Dose: 500 mg Documented by: Metoclopramide HCl (Metoclopramide Hcl Inj 5 Mg/Ml 2 Ml Vial) 10 mg IV Q6H PRN PRN Reason: Nausea And Vomiting Stop: 04/11/22 10:50 Miscellaneous (Carbohydrates For Hypoglycemia ) 15 - 30 gm PO UD PRN PRN Reason: Hypoglycemia Treatment Stop: 04/11/22 11:14 Multivitamins (Multivitamin Tab) 1 tab PO [facility] Stop: 04/12/22 08:59 Last Admin: 03/13/22 08:34 Dose: 1 tab Documented by: Naloxone HCl (Naloxone Hcl 0.4 Mg/1 Ml Vial/Carp) 0.1 mg IV Q5M PRN PRN Reason: Oversedation/Resp Depression Stop: 04/11/22 10:50 Ondansetron HCl (Ondansetron Inj 2 Mg/Ml 2 Ml Vial) 4 mg IV Q6H PRN PRN Reason: Nausea And Vomiting Stop: 04/11/22 10:50 Last Admin: 03/13/22 07:45 Dose: 4 mg Documented by: Oxybutynin Chloride (Oxybutynin Chloride Xl 5 Mg Tabcr) 20 mg PO QAM [facility] Stop: 04/12/22 08:59 Last Admin: 03/13/22 08:37 Dose: 20 mg Documented by: Oxycodone HCl (Oxycodone Hcl Ir 5 Mg Tab (Immediate Release)) 5 - 10 mg PO Q4H PRN PRN Reason: Pain or Pre PT Stop: 03/26/22 10:50 Last Admin: 03/13/22 17:30 Dose: 5 mg Documented by: Pantoprazole Sodium (Pantoprazole 40 Mg Tab) 40 mg PO QAM ZUHAIR Stop: 04/12/22 08:59 Last Admin: 03/13/22 08:37 Dose: 40 mg Documented by: Sennosides (Senna 8.6 Mg Tab) 17.2 mg PO HS [facility] Stop: 04/11/22 20:59 Last Admin: 03/12/22 21:41 Dose: 17.2 mg Documented by: Vitamin D (Cholecalciferol 1,000 Units 25 Mcg Tab) 250 units PO DAILY ZUHAIR Stop: 04/12/22 08:59 Last Admin: 03/13/22 08:37 Dose: 250 units Documented by:
[2022-03-13] MEDS ORDERED: allopurinoL 100 MG TAB PO SCH (21:00)
[2022-03-13] MEDS: SENNA 8.6 MG TAB PO SCH (21:13)
[2022-03-13] MEDS: ATORVASTATIN 40 MG TAB PO SCH (21:14)
[2022-03-13] MEDS: DULoxetine HCL 60 MG CAP PO SCH (21:14)
[2022-03-14] MEDS: ACETAMINOPHEN 500 MG TAB PO SCH (05:04)
[2022-03-14] MEDS ORDERED: INSULIN ASPART PER UNIT SC SCH (07:30)
[2022-03-14] MEDS: oxyCODONE HCL IR 5 MG TAB (IMMEDIATE RELEASE) PO PRN ×2 (08:30→11:40)
[2022-03-14] MEDS: ASPIRIN 81 MG ECTAB PO SCH (08:33)
[2022-03-14] MEDS: LISINOPRIL/HCTZ 20/12.5MG 1 TAB TAB PO SCH (08:34)
[2022-03-14] MEDS: CeleBREX 200 MG CAP PO SCH (08:34)
[2022-03-14] MEDS: GABAPENTIN 100 MG CAP PO SCH (08:34)
[2022-03-14] MEDS: MULTIVITAMIN TAB PO SCH (08:34)
[2022-03-14] MEDS: CHOLECALCIFEROL 1,000 UNITS 25 MCG TAB PO SCH (08:35)
[2022-03-14] MEDS: PANTOprazole 40 MG TAB PO SCH (08:36)
[2022-03-14] MEDS: OXYBUTYNIN CHLORIDE XL 5 MG TABCR PO SCH (08:36)
[2022-03-14] MEDS: DOCUSATE SODIUM 100 MG CAP PO SCH (08:36)
[2022-03-14] MEDS: CALCIUM CARBONATE 1250MG TAB PO SCH (08:36)
[2022-03-14] MEDS ORDERED: LANTUS PER UNIT CHARGE SQ SCH (09:00)
--- NOTE | 2022-03-14 09:06 | Orthopedic Progress Note ---
Date of Service March 14, 2022 Assessment & Plan (1) Status post total knee replacement, left: Plan: 76 yo female stable POD #2 s/p left TKA 1. Med management 2. DVT prophylaxis- ASA, SCDs 3. PT/OT 4. D/C planning- home OPPT Admission and Anticipated Discharge Date Admission Date: March 12, 2022 Subjective Pt resting in bed, denies complaints, pain controlled Physical Exam Physical Exam: Dressing/drain in place, toes mobile, calf soft, NT Results & Data ([facility]) Vital Signs (Past 12 Hours) Vital Signs Temp Pulse Resp BP Pulse Ox 03/14/22 07:08 36.5 C 77 16 124/77 93 03/13/22 21:21 36 C L 78 16 116/69 95 Laboratory Results 03/14/22 03/13/22 03/13/22 Range/Units 08:21 21:07 17:07 POC Glucose 132 H 120 H 118 H (70-99) mg/dl 03/13/22 Range/Units 12:21 POC Glucose 146 H (70-99) mg/dl
--- NOTE | 2022-03-17 19:19 | Discharge Summary ---
Date of Service March 17, 2022 Admission HPI Per Admitting Provider 76-year-old female past medical history significant for diabetes, hypertension, ROXANE, high cholesterol who presents with ongoing left knee pain. Pain is interfering with her daily activities. She has failed conservative measures and would like to proceed with surgical invention. Patient denies headaches, sweats, fevers, chills, double vision, blurred vision, cough, sore throat, dysphagia, chest pain, sob, wheezing, n/v/d/c, numbness, tingling, fatigue, urinary symptoms, mood disorders. ROS positive for left knee pain and stiffness. Admission Exam Per Admitting Provider Constitutional: well developed and well nourished; no acute distress Eyes: PERRL, conjunctivae normal, anicteric sclerae ENMT: external ear and nose normal, oropharynx normal Neck: trachea midline, no thyromegaly Respiratory: normal respiratory effort, lungs clear to auscultation Cardiovascular: RRR, no murmur, no edema Musculoskeletal: Left knee: Varus alignment, tenderness medial joint line. Stress test. Range of motion 0 to 130 degrees. Skin: no rashes, warm and dry Neurologic: patellar DTR's 2+ bilat, sensation intact Psychiatric: A+Ox3, euthymic affect Principal Diagnosis Left knee osteoarthritis Discharge Exam Left knee: Dressing is clean, dry, intact. Toes are mobile with good dorsiflexion. No calf tenderness. Able to do a straight leg raise. Hemovac and gisel in place and on suction. Distally neurovascular status and sensation intact. Constitutional WD/WN, vitals as above Discharge Data Allergies Allergy/AdvReac Type Severity Reaction Status Date / Time No Known Allergies Allergy Verified 03/12/22 05:36 Consultations 03/10/22 09:41 Consult Hospitalist Routine Procedures Performed Operation Date: 03/12/22 07:00 Actual Procedures p Left Total Knee Arthroplasty(Left) - Travis Mayorga MD Ordered Studies 03/12/22 05:00 US - OR guided needle placemen Routine Hospital Course (1) Status post total knee replacement, left: 76 yo female stable POD #2 s/p left TKA 1. Med management 2. DVT prophylaxis- ASA, SCDs 3. PT/OT 4. D/C planning- home OPPT Postop day 1 left total knee -PT/OT -Pain management as written, consider dose of Toradol pending labs this morning -DVT prophylaxis: SCDs, teds, aspirin 81 mg twice daily -A.m. labs are pending -Discharge planning: Plan on discharging home with outpatient PT. Likely discharge tomorrow. Lab Results 03/12/22 03/12/22 03/12/22 Range/Units 05:32 06:00 10:14 WBC (4.8-10.8) K/uL RBC (4.2-5.4) M/uL Hgb (12.0-16.0) g/dL Hct (37-47) % MCV (80-100) fL MCH (25-34) pg MCHC (32-36) g/dL RDW Std Deviation (36.4-46.3) fL RDW Coeff of Niki (11.5-14.5) % Plt Count (130-400) K/uL MPV (7.4-10.4) fL Sodium (136-145) mmol/L Potassium (3.5-5.1) mmol/L Chloride (98-107) mmol/L Carbon Dioxide (21-32) mmol/L Anion Gap (3-11) BUN (6-23) mg/dl Creatinine (0.6-1.2) mg/dl Est Cr Clr Drug Dosing ml/min Est GFR ( Amer) ml/min Est GFR (Non-Af Amer) ml/min BUN/Creatinine Ratio (10-20) Glucose (70-99(Fasting)) mg/dl POC Glucose 186 H 123 H (70-99) mg/dl Calcium (8.5-10.1) mg/dl SARS-CoV-2, RNA, NAAT NEGATIVE (NEGATIVE) 03/12/22 03/12/22 03/12/22 Range/Units 11:25 17:05 20:36 WBC (4.8-10.8) K/uL RBC (4.2-5.4) M/uL Hgb (12.0-16.0) g/dL Hct (37-47) % MCV (80-100) fL MCH (25-34) pg MCHC (32-36) g/dL RDW Std Deviation (36.4-46.3) fL RDW Coeff of Niki (11.5-14.5) % Plt Count (130-400) K/uL MPV (7.4-10.4) fL Sodium (136-145) mmol/L Potassium (3.5-5.1) mmol/L Chloride (98-107) mmol/L Carbon Dioxide (21-32) mmol/L Anion Gap (3-11) BUN (6-23) mg/dl Creatinine (0.6-1.2) mg/dl Est Cr Clr Drug Dosing ml/min Est GFR ( Amer) ml/min Est GFR (Non-Af Amer) ml/min BUN/Creatinine Ratio (10-20) Glucose (70-99(Fasting)) mg/dl POC Glucose 113 H 93 125 H (70-99) mg/dl Calcium (8.5-10.1) mg/dl SARS-CoV-2, RNA, NAAT (NEGATIVE) 03/13/22 03/13/22 03/13/22 Range/Units 07:16 07:16 08:03 WBC 7.26 (4.8-10.8) K/uL RBC 3.63 L (4.2-5.4) M/uL Hgb 11.7 L (12.0-16.0) g/dL Hct 35.4 L (37-47) % MCV 97.5 (80-100) fL MCH 32.2 (25-34) pg MCHC 33.1 (32-36) g/dL RDW Std Deviation 49.1 H (36.4-46.3) fL RDW Coeff of Niki 13.8 (11.5-14.5) % Plt Count 264 (130-400) K/uL MPV 9.5 (7.4-10.4) fL Sodium 136 (136-145) mmol/L Potassium 4.1 (3.5-5.1) mmol/L Chloride 100 (98-107) mmol/L Carbon Dioxide 28 (21-32) mmol/L Anion Gap 8 (3-11) BUN 16 (6-23) mg/dl Creatinine 0.66 (0.6-1.2) mg/dl Est Cr Clr Drug Dosing 80.0 ml/min Est GFR ( Amer) 100.2 ml/min Est GFR (Non-Af Amer) 86.4 ml/min BUN/Creatinine Ratio 24.2 H (10-20) Glucose 154 H (70-99(Fasting)) mg/dl POC Glucose 151 H (70-99) mg/dl Calcium 8.9 (8.5-10.1) mg/dl SARS-CoV-2, RNA, NAAT (NEGATIVE) 03/13/22 03/13/22 03/13/22 Range/Units 12:21 17:07 21:07 WBC (4.8-10.8) K/uL RBC (4.2-5.4) M/uL Hgb (12.0-16.0) g/dL Hct (37-47) % MCV (80-100) fL MCH (25-34) pg MCHC (32-36) g/dL RDW Std Deviation (36.4-46.3) fL RDW Coeff of Niki (11.5-14.5) % Plt Count (130-400) K/uL MPV (7.4-10.4) fL Sodium (136-145) mmol/L Potassium (3.5-5.1) mmol/L Chloride (98-107) mmol/L Carbon Dioxide (21-32) mmol/L Anion Gap (3-11) BUN (6-23) mg/dl Creatinine (0.6-1.2) mg/dl Est Cr Clr Drug Dosing ml/min Est GFR ( Amer) ml/min Est GFR (Non-Af Amer) ml/min BUN/Creatinine Ratio (10-20) Glucose (70-99(Fasting)) mg/dl POC Glucose 146 H 118 H 120 H (70-99) mg/dl Calcium (8.5-10.1) mg/dl SARS-CoV-2, RNA, NAAT (NEGATIVE) 03/14/22 Range/Units 08:21 WBC (4.8-10.8) K/uL RBC (4.2-5.4) M/uL Hgb (12.0-16.0) g/dL Hct (37-47) % MCV (80-100) fL MCH (25-34) pg MCHC (32-36) g/dL RDW Std Deviation (36.4-46.3) fL RDW Coeff of Niki (11.5-14.5) % Plt Count (130-400) K/uL MPV (7.4-10.4) fL Sodium (136-145) mmol/L Potassium (3.5-5.1) mmol/L Chloride (98-107) mmol/L Carbon Dioxide (21-32) mmol/L Anion Gap (3-11) BUN (6-23) mg/dl Creatinine (0.6-1.2) mg/dl Est Cr Clr Drug Dosing ml/min Est GFR ( Amer) ml/min Est GFR (Non-Af Amer) ml/min BUN/Creatinine Ratio (10-20) Glucose (70-99(Fasting)) mg/dl POC Glucose 132 H (70-99) mg/dl Calcium (8.5-10.1) mg/dl SARS-CoV-2, RNA, NAAT (NEGATIVE) Total Time Total Time Spent Total Time Spent (In Minutes): 20 Discharge Plan Discharge Items Patient Disposition: Home - Self-Care Reason For Visit: Left Knee Osteoarthritis Discharge Diagnosis: Left knee osteoarthritis Activity: Per Instructions section Non-emergency contact: Surgeon Call non-emergency contact if: you have any medication questions, your pain is not controlled, your pain is concerning for you, you have a fever, your temperature is above 101, your wound has increased redness and your wound has increased drainage Follow-up/Referrals: Angela Black MD [Primary Care Provider] - Diet: Regular Addtl Attending Provider Instructions: ACTIVITY RECOMMENDATIONS: SELF CARE INSTRUCTIONS AFTER TOTAL KNEE REPLACEMENT A. You may need to continue a physical therapy program after discharge from the hospital. There are several options available to you. Your doctor will assist you in selecting the best one for you. 1. An out-patient facility 2 to 3 times a week for therapy or home therapy. 2. Continue working on all exercises taught to you in the hospital. Your goals should be to increase bending of your knee to 90 degrees and beyond and to fully straighten your knee. B. You may progress at your own pace from walking with a walker or crutches to a cane; then to no assistive devices. C. Make walking a part of your daily routine. Be up as much as comfortable with rest periods throughout the day. Rest with leg elevation is very important. Use the ice wrap frequently for the first 3-4 weeks. D. There are no restrictions on activities. 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 E. Wear the long elastic stockings (EMI hose) 20 hours a day for 2 weeks after surgery. They can be removed several times a day for laundering and for a bath. F. You may shower, no tub baths until cleared by your doctor. SPECIAL CARE INSTRUCTIONS: VERY IMPORTANT TO READ AND REVIEW A. There are a few signs you need to watch for after you are home. Call [facility] if you notice any of the followin. Increased severe knee pain. Some pain is expected especially when you exercise. 2. Increased swelling in your leg or knee; pain or swelling of the calf muscle in either lower leg. 3. Any fluid drainage from the incision. 4. Shortness of breath or chest pain. B. Please call [facility] at if you have any concerns or questions about your operation or recovery. The doctor or his nurse will return your call promptly. C. You must take antibiotics before dental work, bladder, bowel or other surgery. Your doctor will provide you with a permanent care to carry describing this precaution. IMPORTANT: * REMEMBER TO TAKE ASPIRIN, 81 MG, TWICE DAILY FOR 4 WEEKS UNLESS OTHERWISE DIRECTED. THIS IS YOUR BLOOD THINNER. * HIGH RISK PATIENTS MAY BE PRESCRIBED A STRONGER BLOOD THINNER. THIS WILL BE PROVIDED AT DISCHARGE. * CALL IF INCREASED PAIN, REDNESS, DRAINAGE OR FEVER GREATER THAT 101. * WEAR EMI HOSE 20 HOURS PER DAY FOR 2 WEEKS. This is a large suction dressing covering your incision. This will help pull any excess drainage from the wound and allow your incision to heal properly. You may shower with this if you can keep the unit outside of the shower. If any bleeding or leakage is noted please call your doctor's office. This will remain on your incision for 7 days and then should be removed. This can be done yourself or by the home nursing staff if applicable. The entire unit is disposable once removed. Once removed, keep incision clean and dry. If redness or drainage is noted, please call your surgeon. . IF INCISION IS LEAKING THROUGH DRESSING, CALL THE OFFICE . FOLLOW UP VISIT: If appointment is not already scheduled: Please call [facility] to make a follow-up appointment for 2 weeks after your surgery at . Pending Studies at Discharge: No Stand-Alone Forms: [employer], Smoking Cessation Medications and DC Order Prescriptions: New aspirin 81 mg Tablet,Delayed Release (Dr/Ec) 81 mg PO BID Qty: 0 RF: 0 acetaminophen [Tylenol Extra Strength] 500 mg Tablet 1,000 mg PO Q8 Qty: 0 RF: 0 oxycodone 5 mg tablet 5 - 10 mg PO Q6H PRN (Reason: pain) Qty: 18 RF: 0 celecoxib [Celebrex] 200 mg capsule 200 mg PO BID Qty: 60 RF: 0 Continued multivitamin Tablet 1 tab PO QAM RF: 0 atorvastatin 40 mg Tablet 40 mg PO HS RF: 0 lisinopril-hydrochlorothiazide 20-12.5 mg Tablet 1 tab PO QAM RF: 0 oxybutynin chloride 10 mg Tablet Extended Release 24 Hr 20 mg PO QAM RF: 0 allopurinol 100 mg Tablet 100 mg PO PM RF: 0 gabapentin 300 mg Capsule 300 mg PO DIRECTED RF: 0 gabapentin 100 mg Capsule 100 mg PO DIRECTED RF: 0 metformin 500 mg Tablet Extended Release 24 Hr 500 mg PO QDD RF: 0 fiber Capsule 3 cap PO QAM RF: 0 omega-3 fatty acids Capsule 2,500 mg PO QAM RF: 0 biotin 1 mg Tablet 1 mg PO QAM RF: 0 calcium carbonate-vitamin D3 500 mg-3.125 mcg (125 unit) Tablet 1 tab PO BID RF: 0 potassium gluconate 595 mg (99 mg) Tablet 595 mg PO QAM RF: 0 omeprazole 20 mg Tablet,Delayed Release (Dr/Ec) 20 mg PO QAM RF: 0 duloxetine 60 mg Capsule, Delayed Rel Sprinkle 60 mg PO HS RF: 0 Discontinued meloxicam 15 mg Tablet 15 mg PO DIRECTED RF: 0 Discharge Orders: Discharge Order (Routine); Ordered 03/14/22 Ordered By: Tong Meza Admission Data Admit Date/Time: 03/12/22 09:54 Attending Provider: Travis Mayorga Admit Provider: Travis Mayorga Primary Care Provider: Angela Black Other Interventions: Discharge Summary Assessment (RN) Last Done: 03/14/22 10:29
== END 2022-03-14 13:09 | disposition home or self-care (01) ==
LOC: 3E 05:11 → ASU 05:11